=== PATIENT | female | born 1970 | race Caucasian/White ===

== ENCOUNTER → 2018-03-11 | Outpatient (CLI) | payer OTHER ==
--- NOTE | 2018-03-11 15:44 | RADIOLOGY IMAGING REPORT ---
[place] [facility] [place] LASHAY HARRIS : [id number] MR: [id number] V: [id number] EXAM DATE: ORDERING PHYSICIAN: DIMITRI AGUDELO TECHNOLOGIST: Leticia Porter PROCEDURE:BILATERAL DIGITAL SCREENING MAMMOGRAM WITH CAD ASSISTED INTERPRETATION & 3D TOMOSYNTHESIS COMPARISON:Prior mammograms 12/24/15, 02/19/12. INDICATIONS:SCREENING FINDINGS: The breasts are heterogeneously dense which can obscure small masses. The parenchymal pattern has remained stable allowing for difference in mammographic technique & patient positioning. DIAGNOSTIC CATEGORY 1--NEGATIVE. RECOMMENDATIONS: ROUTINE MAMMOGRAM AND CLINICAL EVALUATION. IMPRESSION: BIRADS 1: Negative. No significant abnormality is seen. Dictated by: Lucita Chung M.D. on 03/11/2018 at 15:27 Transcribed by: SARAY on 03/11/2018 at 15:34 Approved by: Lucita Chung M.D. on 03/11/2018 at 15:43 [facility]
== END ==
LOC: MAMO 00:18
PROVIDERS: ATTEND Nurse Practitioner Family
DX: Z12.31 Encounter for screening mammogram for malignant neoplasm of breast (principal)
CPT/HCPCS: 77063; 77067